=== PATIENT | male | born 1965 | race Caucasian/White ===

== ENCOUNTER 2018-05-08 20:09 | Emergency (ER) | payer OTHER ==
[~2018-05-08] VITALS: Ht 180.3 cm; Wt 81.7 kg
[~2018-05-08 20:09] MED LIST: ACETAMINOPHEN-1 EAC1 PO; CLONIDINE0.1 PO; FLEXERIL PO; IBUPROFEN 600600 M1; IBUPROFEN 800800 M1 PO; NORCO 5-325 TA1 EACH PO; NORFLEX100 MG PO; VALIUM5 MG PO; ZANAFLEX4 MG PO
[2018-05-08] MEDS ORDERED: VALIUM5 MG PO (20:27)
[2018-05-08] MEDS ORDERED: ACETAMINOPHEN-1 EAC1 PO (20:27)
[2018-05-08] MEDS ORDERED: MEDROLDOSEPACK PO (20:27)
[2018-05-08 20:32] VITALS: BP 170/105
== END 2018-05-08 20:33 | disposition home or self-care (01) ==
LOC: ER 20:09
DX: M54.5 Low back pain (principal); F17.210 Nicotine dependence, cigarettes, uncomplicated

== ENCOUNTER 2019-07-30 19:47 | Emergency (ER) | payer OTHER ==
[~2019-07-30] VITALS: Ht 180.3 cm; Wt 81.7 kg
[~2019-07-30 19:47] MED LIST changes: +MEDROLDOSEPACK PO
[2019-07-30] MEDS ORDERED: ALEVE220 M1 PO (19:56)
[2019-07-30] MEDS ORDERED: ADVIL200 M1 PO (19:57)
[2019-07-30 20:15] VITALS: BP 204/100
[2019-07-30] MEDS ORDERED: TYLENOL WITH CO1 TA1 PO (20:42)
[2019-07-30] MEDS ORDERED: NORFLEX100 MG PO (20:42)
[2019-07-30] MEDS ORDERED: NAPROSYN500 MG PO (20:42)
== END 2019-07-30 20:50 | disposition home or self-care (01) ==
LOC: ER 19:47
DX: S39.012A Strain of muscle, fascia and tendon of lower back, initial encounter (principal); F17.210 Nicotine dependence, cigarettes, uncomplicated; X50.9XXA Other and unspecified overexertion or strenuous movements or postures, initial encounter; Y93.89 Activity, other specified; Y92.89 Other specified places as the place of occurrence of the external cause; Y99.8 Other external cause status